=== PATIENT | female | born 1980 | race Caucasian/White ===

== ENCOUNTER 2020-10-04 05:33 | Inpatient (IN) | payer OTHER ==
[2020-10-04] MEDS ORDERED: Ondansetron PF 4 MG/2 ML Vial IVP PRN ×3 (05:54→12:34)
[2020-10-04] MEDS ORDERED: Bicitra 30 ML UDCUP PO PRN (05:54)
[2020-10-04] MEDS ORDERED: Famotidine/PF 20 mg/2ml Vial SLOW IVP PRN (05:54)
[2020-10-04] MEDS ORDERED: hydrALAZINE 20 MG/ML VIAL SLOW IVP PRN ×2 (05:54→10:56)
[2020-10-04] MEDS ORDERED: CEFAZOLIN 2 GM in Premix Bag 1 BAG IVPB SCH (05:54)
[2020-10-04] MEDS ORDERED: Promethazine HCl 25 MG/ML VIAL IM PRN ×3 (05:54→12:34)
[2020-10-04] MEDS ORDERED: Lactated Ringer's 1,000 ML IV SCH (05:54)
[2020-10-04 05:57] VITALS: BMI 32.9
[2020-10-04 06:43] LABS: Mean Corpuscular HGB CONC 33.8 g/dL (32.0-36.0); Mean Corpuscular Hemoglobin 33.2 pg (27.0-33.0); Mean Corpuscular Volume 98.2 fl (81.6-98.3); Mean Platelet Volume 10.7 fl (7.4-10.4); Platelet Count 209 10x3/uL (150-450); Red Blood Cell (RBC) Count 3.92 10x6/uL (3.90-5.03); White Blood Cell (WBC) Count 8.3 10x3/uL (3.5-10.5)
[2020-10-04 07:19] LABS: Syphilis Antibody Nonreactive (Nonreactive); Syphilis Antibody Index 0.01 S/CO (<1.00 Non-Reactive)
[2020-10-04 07:20] LABS: Hep B Surf Ag Non-Reactive S/CO (NonReactive)
[2020-10-04 07:24] LABS: HBSAg Index 0.17 S/CO (0-0.99)
[2020-10-04] MEDS ORDERED: Morphine PF 10 MG/10 ML VIAL ONE (07:34)
[2020-10-04] MEDS ORDERED: Oxytocin 10 UNITS/ML VIAL ONE (07:34)
[2020-10-04] MEDS ORDERED: Ondansetron PF 4 MG/2 ML Vial ONE ×2 (07:35→07:49)
[2020-10-04] MEDS ORDERED: Bicitra 30 ML UDCUP ONE (07:37)
[2020-10-04] MEDS ORDERED: ePHEDrine Sulfate 50 MG/10 ML VIAL ONE (07:49)
[2020-10-04] MEDS ORDERED: PHENYLEPHRINE-NS 100 MCG/ML 10 ML SYRINGE ONE (07:50)
[2020-10-04] MEDS ORDERED: Dexamethasone 4 mg/ml Vial ONE (08:03)
[2020-10-04] MEDS ORDERED: Ondansetron HCl/PF 4 MG/2 ML Vial IVP PRN (10:09)
[2020-10-04] MEDS ORDERED: L&D-Morphine 4 MG/ML VIAL SLOW IVP PRN (10:09)
[2020-10-04] MEDS ORDERED: HYDROmorphone 2 MG/ML VIAL SLOW IVP PRN (10:09)
[2020-10-04] MEDS ORDERED: Meperidine HCl/PF 25 MG/ML VIAL SLOW IVP PRN (10:09)
[2020-10-04] MEDS ORDERED: Ketorolac Tromethamine 30 MG/ML VIAL IVP SCH (10:15)
[2020-10-04] MEDS ORDERED: diphenhydrAMINE 50 MG/ML VIAL IVP PRN ×2 (10:18→12:34)
[2020-10-04] MEDS ORDERED: Naloxone HCl 0.4 mg/ml Vial IVP PRN ×3 (10:18→12:34)
[2020-10-04] MEDS ORDERED: Naloxone HCl 0.4 mg/ml Vial IV PRN ×2 (10:18→12:34)
[2020-10-04] MEDS ORDERED: NS w/ Oxytocin 30 units 500 ML ONE (10:19)
[2020-10-04] MEDS ORDERED: Bisacodyl 10 MG SUPP PR PRN (10:56)
[2020-10-04] MEDS ORDERED: Adacel (T-DAP) 0.5 ML SYRINGE IM ONE (10:56)
[2020-10-04] MEDS ORDERED: Lanolin Ointment 7 GM TUBE TOP PRN (10:56)
[2020-10-04] MEDS ORDERED: Acetaminophen 325 MG TAB PO PRN (10:56)
[2020-10-04] MEDS ORDERED: Zolpidem Tartrate 5 MG TAB PO PRN (10:56)
[2020-10-04] MEDS ORDERED: HYDROcodone/Acetaminophen 5/325 mg Tablet PO PRN ×2 (10:56)
[2020-10-04] MEDS ORDERED: Docusate Calcium (SURFAK) 240 MG CAP PO SCH (11:15)
[2020-10-04] MEDS ORDERED: Ferrous Sulfate 325 MG TAB PO SCH (11:30)
[2020-10-04] MEDS ORDERED: Prenatal Vitamin 1 TAB PO SCH (11:30)
[2020-10-04] MEDS ORDERED: Ibuprofen 800 MG TAB PO SCH (12:00)
[2020-10-04] MEDS: diphenhydrAMINE 25 MG CAP PO PRN ×2 (12:20→17:53)
[2020-10-04] MEDS ORDERED: Promethazine HCl 25 MG SUPP PR PRN (12:34)
[2020-10-04] MEDS ORDERED: Communication Order-Pharmacy FS SCH (12:45)
[2020-10-04] MEDS: Ketorolac Tromethamine 30 MG/ML VIAL IVP PRN ×2 (13:04→20:57)
[2020-10-04] MEDS: Ibuprofen 800 MG TAB PO SCH ×2 (16:29→23:18)
[2020-10-04] MEDS: Ferrous Sulfate 325 MG TAB PO SCH (23:17)
[2020-10-04] MEDS: Docusate Calcium (SURFAK) 240 MG CAP PO SCH (23:17)
[2020-10-05] MEDS ORDERED: HYDROcodone/Acetaminophen 5/325 mg Tablet PO PRN ×2 (01:00→13:00)
[2020-10-05] MEDS ORDERED: Zolpidem Tartrate 5 MG TAB PO PRN (01:00)
[2020-10-05] MEDS: diphenhydrAMINE 25 MG CAP PO PRN ×2 (01:17→05:36)
[2020-10-05] MEDS: Ibuprofen 800 MG TAB PO SCH ×3 (05:36→21:42)
[2020-10-05 06:00] LABS: Hemoglobin 11.5 g/dL (12.0-15.5); Mean Corpuscular HGB CONC 33.7 g/dL (32.0-36.0); Mean Corpuscular Hemoglobin 33.8 pg (27.0-33.0); Mean Corpuscular Volume 100.3 fl (81.6-98.3); Mean Platelet Volume 10.8 fl (7.4-10.4); Platelet Count 174 10x3/uL (150-450); RBC Distribution Width 12.9 % (11.5-14.5); White Blood Cell (WBC) Count 12.7 10x3/uL (3.5-10.5)
[2020-10-05] MEDS: Prenatal Vitamin 1 TAB PO SCH (08:40)
[2020-10-05] MEDS: Docusate Calcium (SURFAK) 240 MG CAP PO SCH ×2 (08:40→21:42)
[2020-10-05] MEDS: Ferrous Sulfate 325 MG TAB PO SCH ×2 (11:43→21:44)
[2020-10-05] MEDS: HYDROcodone/Acetaminophen 5/325 mg Tablet PO PRN ×2 (11:44→19:14)
[2020-10-05] MEDS: Simethicone Chewable 80 MG TAB PO PRN (11:44)
[2020-10-06] MEDS: Ibuprofen 800 MG TAB PO SCH ×2 (06:06→12:36)
[2020-10-06 07:48] VITALS: BP 111/67; TEMP 98.3
[2020-10-06] MEDS: Ferrous Sulfate 325 MG TAB PO SCH (07:58)
[2020-10-06] MEDS: Simethicone Chewable 80 MG TAB PO PRN (11:01)
[2020-10-06] MEDS: Docusate Calcium (SURFAK) 240 MG CAP PO SCH (11:01)
[2020-10-06] MEDS: Prenatal Vitamin 1 TAB PO SCH (11:01)
[2020-10-06] MEDS: HYDROcodone/Acetaminophen 5/325 mg Tablet PO PRN (12:36)
== END 2020-10-06 13:20 | disposition home or self-care (01) | DRG 784 ==
LOC: CSHLD 05:33 → CSHPP 10:45
PROVIDERS: ADMIT Student in an Organized Health Care Education/Training Program; ATTEND Student in an Organized Health Care Education/Training Program
PROC: 10D00Z1 Extraction of Products of Conception, Low, Open Approach (ICD-10-PCS; principal; 2020-10-04)
PROC: 0UT70ZZ Resection of Bilateral Fallopian Tubes, Open Approach (ICD-10-PCS; 2020-10-04)
PROC: 4A0HXCZ Measurement of Products of Conception, Cardiac Rate, External Approach (ICD-10-PCS; 2020-10-04)
DX: O34.211 Maternal care for low transverse scar from previous cesarean delivery (principal); O98.52 Other viral diseases complicating childbirth; O99.02 Anemia complicating childbirth; D64.9 Anemia, unspecified; Z3A.39 39 weeks gestation of pregnancy; Z37.0 Single live birth; B00.9 Herpesviral infection, unspecified
CPT/HCPCS: 36415; 51702; 85027; 86780; 86850; 86900; 86901; 87340; 88302; J0690; J1100; J1885; J2270; J2405; J2590; Q0163